=== PATIENT | female | born 1985 | race African-American/Black ===

== ENCOUNTER 2016-10-06 18:59 | Emergency (ER) | payer SELFPAY ==
[2016-10-06 19:08] VITALS: RESP 16
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
[2016-10-06] MEDS ORDERED: MORPHINE SULFATE 10 MG/ML SYRINGE IM STA (19:13)
--- NOTE | 2016-10-06 20:18 | XR ---
EXAMINATION TYPE: XR knee complete RT DATE OF EXAM: 10/06/2016 8:09 PM CLINICAL HISTORY: pain TECHNIQUE: Frontal, lateral and oblique images of the right foot are obtained. COMPARISON: None. FINDINGS: There is no acute fracture/dislocation evident. The joint spaces appear within normal tavarez its. The overlying soft tissue appears unremarkable. IMPRESSION: There is no acute fracture or dislocation. ICD 10 NO FRACTURE, INITIAL EVALUATION
--- NOTE | 2016-10-06 20:18 | XR ---
EXAMINATION TYPE: XR ankle complete RT DATE OF EXAM: 10/06/2016 8:09 PM CLINICAL HISTORY: pain TECHNIQUE: Frontal, lateral and oblique images of the right foot are obtained. COMPARISON: None. FINDINGS: Oblique fracture lateral malleolus at the level of the ankle mortise. Displacement at 2 mm. There appears to be instability of the ankle mortise with widening of the medial tibiotalar joint sp cristóbal. Soft tissue edema is noted. IMPRESSION: Lateral malleolar fracture and tibial plateau instability. ICD 10 closed FRACTURE, INITIAL EVALUATION
[2016-10-06] MEDS ORDERED: ALPRAZolam 0.5 MG TAB PO STA (20:50)
[2016-10-06] MEDS ORDERED: HYDROmorphone 1 MG/ML 1 ML SYRINGE IM STA (20:50)
--- NOTE | 2016-10-06 21:36 | XR ---
EXAMINATION TYPE: XR ankle limited RT DATE OF EXAM: 10/06/2016 9:28 PM COMPARISON: NONE HISTORY: Post reduction TECHNIQUE: Frontal, lateral images of the right ankle are obtained. COMPARISON: None. FINDINGS: Improved alignment of fibular fracture as well as ankle mortise. Cast material obscures fine bone detail. IMPRESSION: Post reduction right ankle.
[2016-10-06 21:52] VITALS: BP 111/70; PULSE 62; TEMP 97.8
== END 2016-10-06 21:51 | disposition home or self-care (01) ==
LOC: EC 18:59
DX: S82.61XA Displaced fracture of lateral malleolus of right fibula, initial encounter for closed fracture (principal); F17.200 Nicotine dependence, unspecified, uncomplicated; W19.XXXA Unspecified fall, initial encounter; Y93.41 Activity, dancing; Y92.009 Unspecified place in unspecified non-institutional (private) residence as the place of occurrence of the external cause
CPT/HCPCS: 81025; 73562; 73600; 73610; 99284; 27788; 96372 ×2; J2270; J1170

== ENCOUNTER 2021-12-18 20:54 | Emergency (ER) | payer OTHER ==
[2021-12-18 21:48] VITALS: RESP 18; TEMP 98.1
[2021-12-19] MEDS ORDERED: ONDANSETRON 4 MG/2 ML VIAL IM STA (01:24)
[2021-12-19] MEDS ORDERED: KETOROLAC 15 MG/ML 1 ML VIAL IM STA ×2 (01:24→02:00)
--- NOTE | 2021-12-19 01:24 | ED ---
General Adult HPI - General Chief complaint: Headache Stated complaint: Headache Time Seen by Provider: 12/19/21 01:03 Source: patient, RN notes reviewed Mode of arrival: ambulatory Limitations: no limitations - History of Present Illness Initial comments: 36-year-old female presents to the emergency department for evaluation of migraine headache, onset yesterday. Patient states she has a history of migraine headaches and this presentation is similar to previous ones. States her symptoms are accompanied by photosensitivity and nausea. Reports poor appetite the past 24 hours. Does not have anything to take for pain at home. Denies fever, chills, dizziness, blurry vision, chest pain, shortness of breath, abdominal pain, diarrhea, dysuria, or hematuria. - Related Data Previous Rx's Medication Instructions Recorded Docusate [Colace] 100 mg PO DAILY PRN 15 Days 10/06/16 capsule HYDROcodone/APAP 5-325MG [[place] 1 - 2 tab PO Q6HR PRN #20 tab 10/06/16 5-325] Allergies Allergy/AdvReac Type Severity Reaction Status Date / Time No Known Allergies Allergy Verified 10/06/16 19:26 Review of Systems ROS Statement: Those systems with pertinent positive or pertinent negative responses have been documented in the HPI. ROS Other: All systems not noted in ROS Statement are negative. Past Medical History Past Medical History: No Reported History Additional Past Medical History / Comment(s): MIGRAINE History of Any Multi-Drug Resistant Organisms: None Reported Past Surgical History: Section Past Psychological History: No Psychological Hx Reported Smoking Status: Current every day smoker Past Alcohol Use History: None Reported Past Drug Use History: None Reported General Exam Limitations: no limitations General appearance: alert, in no apparent distress, other (This is a well- developed, well-nourished female in no acute distress. Initial temperature 98.1, pulse 66, respirations 18, blood pressure 106/66, pulse ox 99% on room air.) Head exam: Present: atraumatic, normocephalic, normal inspection Eye exam: Present: normal appearance, PERRL, EOMI. Absent: scleral icterus, conjunctival injection, periorbital swelling Neck exam: Present: normal inspection, full ROM. Absent: tenderness, meningismus, lymphadenopathy Respiratory exam: Present: normal lung sounds bilaterally. Absent: respiratory distress, wheezes, rales, rhonchi, stridor Cardiovascular Exam: Present: regular rate, normal rhythm, normal heart sounds. Absent: systolic murmur, diastolic murmur, rubs, gallop, clicks GI/Abdominal exam: Present: soft, normal bowel sounds. Absent: distended, tenderness, guarding, rebound, rigid Neurological exam: Present: alert, oriented X3, CN II-XII intact Expanded Patient oriented to: Present: person, place, time Speech: Present: fluid speech Motor strength exam: RUE: 5, LUE: 5, RLE: 5, LLE: 5 Eye Response: (4) open spontaneously Motor Response: (6) obeys commands Verbal Response: (5) oriented [place] Total: 15 Psychiatric exam: Present: flat affect Skin exam: Present: warm, dry, intact, normal color Course Vital Signs 12/18/21 21:46 Temperature 98.1 F Pulse Rate 66 Respiratory 18 Rate Blood Pressure 106/66 O2 Sat by Pulse 99 Oximetry Disposition Clinical Impression: Migraine headache Disposition: HOME SELF-CARE Condition: Stable Instructions (If sedation given, give patient instructions): Migraine Headache (ED) Additional Instructions: Follow-up with your PCP as scheduled. Return to the emergency department with any new, worsening, or concerning sym ptoms. A work note was provided. Is patient prescribed a controlled substance at d/c from ED?: No Referrals: Damaso Arteaga DO [Primary Care Provider] - 1-2 days Time of Disposition: 02:11
[2021-12-19 02:19] VITALS: BP 102/62; PULSE 71
== END 2021-12-19 02:19 | disposition home or self-care (01) ==
LOC: EC 20:54
DX: G43.909 Migraine, unspecified, not intractable, without status migrainosus (principal); F17.200 Nicotine dependence, unspecified, uncomplicated
CPT/HCPCS: 96372; 99283

== ENCOUNTER → 2022-01-21 | Outpatient (CLI) | payer OTHER ==
--- NOTE | 2022-01-21 20:06 | US ---
EXAMINATION TYPE: US transvaginal DATE OF EXAM: 01/21/2022 COMPARISON: NONE CLINICAL HISTORY: N83.209 UNSPECIFIED OVARIAN CYST, UNSPECIFIED SIDE. LLQ pain 2 weeks ago, h/o ovari an cyst, A2 TECHNIQUE: TV. Transvaginal sonographic images Date of LMP: 01/11/2022 EXAM MEASUREMENTS: Uterus: 8.0 x 3.5 x 3.4 cm Endometrial Stripe: 0.8 cm Right Ovary: not seen Left Ovary: 2.0 x 1.8 x 1.9 cm 1. Uterus: Anteverted wnl 2. Endometrium: wnl 3. Right Ovary: not seen due to overlying bowel gas 4. Left Ovary: 1.6 x 1.5 x 1.0cm, dominate follicle 5. Bilateral Adnexa: wnl 6. Posterior cul-de-sac: mild free fluid on the left IMPRESSION: 1. Left ovarian follicle. 2. Small amount of free fluid within the cul-de-sac.
== END | disposition home or self-care (01) ==
LOC: RADUSWWP 16:22
PROVIDERS: ATTEND Family Medicine
DX: N83.209 Unspecified ovarian cyst, unspecified side (principal)
CPT/HCPCS: 76830